=== PATIENT | male | born 2000 | race Caucasian/White ===

== ENCOUNTER 2021-12-08 06:28 | Emergency (ER) | payer OTHER, BC ==
[2021-12-08] MEDS ORDERED: Lidocaine 1% 20 ML MDV INFILT ONE (06:29)
== END 2021-12-08 07:43 | disposition home or self-care (01) ==
LOC: FB.ED 06:28
DX: S81.811A Laceration without foreign body, right lower leg, initial encounter (principal); S09.90XA Unspecified injury of head, initial encounter; W01.0XXA Fall on same level from slipping, tripping and stumbling without subsequent striking against object, initial encounter
CPT/HCPCS: 12001; 99283; 99283-25